=== PATIENT | male | born 1935 | race Caucasian/White ===

== ENCOUNTER → 2016-08-14 | Outpatient (CLI) | payer OTHER, MEDICARE ==
[~2016-08-14] MED LIST: ACET-1311 PO; ACET650S10 RE; AFRIN; AMIO200T PO; AMIO200T4 PO; ARC10 PO; ASCO500T16 PO; ASPEC81 PO; ASPI81TA28 PO; ATOR-24 PO; ATOR-26 PO; BCTROWC TOP; BISA10SU3 PR; CALC-574 PO; CMD5 PO; CYAN10005 PO; CZR25 PO; DRGTP12 TD; ESCI10TA17 PO; FINA5TAB PO; FLM4 PO; FLV1 PO; FOLI1TAB7 PO; GUAI1TAB75 PO; HYDR-5688 PO; INSU100I SQ; IPRASOL4 INH; LEVO1TAB35 PO; LOSA50TA54 PO; MAGN250T3 PO; MELA1TAB5 PO; METH15TA2 PO; METH2.5T PO; MOML PO; NOVOLOG ASPART; NTRGSL/4 UT; NVLG SQ; NVLGIPEN SC; NYSP EXT; NYST80OI TOP; OMEP40CA PO; OMEP40CA41 PO; OXYB10TA PO; OXYBUTYNIN; POLY150C4 PO; TOLT1CAP3 PO; TPRSR/50 PO; TYL325X PO; WARF2.5T8 PO; WARF3TAB PO; [UNRECOGNIZED DRUG - CODE] PO; augmentin; fleet enema
[2016-08-14 10:31] LABS: BASO % 0.5 %; BASO ABS # 0.03 K/uL (0-0.2); EOS % 0.6 %; IG% 0.2 %; LYMPH % 10.7 %; LYMPH ABS # 0.68 K/uL (1.2-3.4); MEAN CELL VOLUME 86.8 fL (80-100); MEAN CORPUSCULAR HEMOGLOBIN 26.7 pg (25-34); MEAN CORPUSCULAR HGB CONC 30.8 g/dl (32-36); MEAN PLATELET VOLUME 8.4 fL (7.4-10.4); PLATELET COUNT 285 K/uL (130-400); RED BLOOD COUNT 2.88 M/uL (4.7-6.1); WHITE BLOOD COUNT 6.36 K/uL (4.8-10.8)
[2016-08-14 10:39] LABS: BLOOD UREA NITROGEN 19 mg/dl (7-18); BUN/CREATININE RATIO 31.8 (10-20); CARBON DIOXIDE 31 mmol/L (21-32); CHLORIDE 108 mmol/L (98-107); CREATININE 0.59 mg/dl (0.60-1.40); GLUCOSE 82 mg/dl (70-99); POTASSIUM 4.1 mmol/L (3.5-5.1); SODIUM 144 mmol/L (136-145)
[2016-08-14 10:55] LABS: ANISOCYTOSIS PRESENT; COMPLETE YES; OVALOCYTES 1+; POIKILOCYTOSIS PRESENT
[2016-08-14 12:35] LABS: ESTIMATED AVERAGE GLUCOSE 114 mg/dl; HA1C FLAG Normal (Normal)
--- NOTE | 2016-08-15 14:11 | CODING QUERY NO DIAGNOSIS ---
TREATMENT RENDERED WITHOUT A DIAGNOSIS 37 To promote full compliance with coding requirements relating to patient care, physician participation is requested in all cases of tow feeder uncertainty. Please assist us with providing a diagnosis/symptom for the test(s) below: A diagnosis/symptom was not documented on your Order. A valid diagnosis/symptom is required to bill all insurances. Please remember that we are unable to code a diagnosis of rule out, probable, possible, questionable, or suspected. DOS 08/14/16 Tests that require a diagnosis: * CBC w/DIFF DIAGNOSIS: * BMP DIAGNOSIS: * VITAMIN D, 25-HYDROXY DIAGNOSIS: *ON YOUR ORDER YOU HAVE DX CODE I25.1, THAT IS AN INVALID CODE, CAN YOU PLEASE ADD CORRECT CODE Provider Signature: Date: Thank you Cornelia Somers [employer] Once completed, please kindly fax back to [phone] For questions please call [phone]
--- NOTE | 2016-09-24 08:18 | CODING QUERY MEDICAL NECESSITY ---
SUPPORTING DIAGNOSIS NEEDED A supporting diagnosis is required for the test/procedure performed on this patient in order for us to be reimbursed by the patient's insurance. Please provide a supporting diagnosis for the following test/procedure listed below next to the test name along with your signature. *If there is no additional diagnosis for this patient that would support the following test/procedure please document that below next to the test/procedure. Test(s)/Procedure(s) that require a supporting diagnosis: * GLYCATED HEMOGLOBIN DIAGNOSIS: * DOS: 08/14/16 Provider Signature: Date: Thank you Jackie Jimenez Health Information Management Once completed, please kindly fax back to [phone] For questions please call [phone]
== END ==
LOC: C.LABUPNIT 09:40
PROVIDERS: ATTEND Family Medicine
DX: G93.41 Metabolic encephalopathy (principal); E55.9 Vitamin D deficiency, unspecified; D63.1 Anemia in chronic kidney disease; E11.42 Type 2 diabetes mellitus with diabetic polyneuropathy

== ENCOUNTER → 2016-08-15 | Outpatient (CLI) | payer OTHER, MEDICARE ==
[2016-08-15 09:14] LABS: BASO % 0.8 %; BASO ABS # 0.05 K/uL (0-0.2); EOS % 1.4 %; HEMATOCRIT 28.6 % (42-52); IG% 0.2 %; LYMPH % 13.7 %; LYMPH ABS # 0.89 K/uL (1.2-3.4); MEAN CELL VOLUME 86.9 fL (80-100); MEAN CORPUSCULAR HEMOGLOBIN 26.4 pg (25-34); MEAN CORPUSCULAR HGB CONC 30.4 g/dl (32-36); MEAN PLATELET VOLUME 8.6 fL (7.4-10.4); NEUT % 75.9 %; PLATELET COUNT 323 K/uL (130-400); RED BLOOD COUNT 3.29 M/uL (4.7-6.1); WHITE BLOOD COUNT 6.48 K/uL (4.8-10.8)
[2016-08-15 09:25] LABS: FERRITIN 153.8 ng/ml (8.0-388.0)
[2016-08-15 09:56] LABS: ANISOCYTOSIS PRESENT; COMPLETE YES; POIKILOCYTOSIS PRESENT
== END ==
LOC: C.LABUPNIT 08:57
PROVIDERS: ATTEND Family Medicine
DX: I25.10 Atherosclerotic heart disease of native coronary artery without angina pectoris (principal)

== ENCOUNTER 2016-09-02 00:19 | Emergency (ER) | payer OTHER, MEDICARE ==
[~2016-09-02] VITALS: Ht 182.9 cm; Wt 86.0 kg
[~2016-09-02 00:19] MED LIST changes: -ACET650S10 RE; -AFRIN; -AMIO200T4 PO; -ASCO500T16 PO; -ASPEC81 PO; -ATOR-24 PO; -BCTROWC TOP; -CALC-574 PO; -CMD5 PO; -CZR25 PO; -DRGTP12 TD; -FLV1 PO; -INSU100I SQ; -METH15TA2 PO; -NVLG SQ; -NVLGIPEN SC; -NYSP EXT; -NYST80OI TOP; -OMEP40CA41 PO; -OXYB10TA PO; -TOLT1CAP3 PO; -TYL325X PO; -WARF2.5T8 PO
[2016-09-02 00:32] VITALS: Ht 182.9 cm; Wt 86.0 kg
[2016-09-02] MEDS ORDERED: AMIO200T4 PO (00:44)
[2016-09-02] MEDS ORDERED: ATOR-24 PO (00:44)
--- NOTE | 2016-09-02 00:44 | EMERGENCY ROOM VISIT NOTE ---
History Report prepared by Harsh: Carly Elena Under the Supervision of: Dr. Segundo Thomas M.D. First contact with patient: 00:25 Chief Complaint: ILLNESS Stated Complaint: FEVER/SHORT OF BREATH/ALTERED MENTAL STATUS History of Present Illness The patient is a 80 year old male who presents to the Emergency Room with complaints of a constant fever beginning today of 101.7. Per nursing staff the patient is being treated for a UTI and pneumonia. They report that the patient came from [facility] with a fever, shortness of breath, altered mental status, and shaking. They state that the patient coughed up blood yesterday and note that he is on Methotrexate and Coumadin. HPI limited secondary to AMS. Source of History: nursing staff History Limited By: AMS Onset: tonight Position: other (global) Symptom Intensity: 101.7 Timing: constant Associated Symptoms: + SOB Note: Pt came from [facility] with a altered mental status and shaking. Review of Systems See HPI for pertinent positives & negatives. A total of 10 systems reviewed and were otherwise negative. Past Medical & Surgical Medical Problems: (1) Altered mental status (2) Benign hypertension (3) Coronary artery disease (4) CVA (cerebral vascular accident) (5) Diabetes mellitus type 1 (6) Ischemic cardiomyopathy (7) Rheumatoid arthritis Family History No pertinent family history Social History Smoking Status: Unknown if Ever Smoked Drug Use: none Marital Status: Housing Status: shelter Occupation Status: retired Current/Historical Medications Scheduled Amiodarone Hcl (Cordarone), 200 MG PO DAILY Aspirin (Aspirin Ec), 81 MG PO DAILY Atorvastatin (Lipitor), 40 MG PO DAILY Cyanocobalamin (Vitamin B-12), 1,000 MCG PO DAILY Donepezil HCl (Donepezil HCl), 10 MG PO DAILY Escitalopram (Lexapro), 10 MG PO DAILY Finasteride (Proscar), 5 MG PO DAILY Folic Acid (Folvite), 1 MG PO DAILY Guaifenesin La (Guaifenesin Er), 600 MG PO Q12H Insulin Aspart (Novolog), UNITS SQ ACHS Losartan Potassium (Cozaar), 50 MG PO DAILY Magnesium (Magnesium 250 mg), 250 MG PO DAILY Methotrexate (Trexall), 15 MG PO FRIDAYS Metoprolol Succinate (Metoprolol Succinate ER), 50 MG PO DAILY Omeprazole (Prilosec), 40 MG PO DAILY Oxybutynin Chloride Er (Ditropan Xl), 10 MG PO DAILY Polysaccharide Iron Complex (Ferrex 150), 150 MG PO BID Tamsulosin HCl (Tamsulosin HCl), 0.4 MG PO DAILY Warfarin Sodium (Coumadin), 3 MG PO DAILY Scheduled PRN Acetaminophen (Tylenol), 650 MG PO Q6 PRN for Pain or Fever Acetaminophen (Tylenol), 650 MG RE Q4 PRN for TEMP >101 Hydrocodone/Acetaminophen 5MG/325MG (Centrah[place] 5MG/325MG), 1 TABLET PO Q8 PRN for Pain Ipratropium-Albuterol (Duoneb), 1 TREATMENT INH Q4H PRN for SOB/Wheezing Nitroglycerin (Nitrostat), 0.4 MG UT UD PRN for Chest Pain Allergies Coded Allergies: No Known Allergies (Verified , 09/02/16) Physical Exam Vital Signs Date Time Temp Pulse Resp B/P Pulse Ox O2 Delivery O2 Flow Rate FiO2 09/02/16 02:10 95 Nasal Cannula 4.0 09/02/16 02:10 37.5 63 14 109/52 95 Nasal Cannula 4.0 09/02/16 00:55 94 Mask 4.0 09/02/16 00:32 37.6 72 100 Mask 5.0 09/02/16 00:29 81 Physical Exam GENERAL: Acute on chronic illness, demented, moaning periodically but appears in no distress. HEENT: No acute trauma, normocephalic atraumatic, mucous membranes moist, no nasal congestion, no scleral icterus. NECK: No stridor, no adenopathy, no meningismus, trachea is midline. LUNGS: No dyspnea. No wheeze, no rhonchi. Diffuse crackles in all lung ashley. HEART: Regular rate and rhythm. No murmurs, rubs, gallops appreciated. ABDOMEN: Soft, nontender, bowel sounds positive, no masses appreciated, no peritonitis. BACK: No midline tenderness, no CVA tenderness EXTREMITIES: Normal motion all extremities, no cyanosis, no edema. NEUROLOGIC: Demented, no acute motor or sensory deficits, no focal weakness, cranial nerves grossly intact. Periodically moves arms and legs. SKIN: No rash, no jaundice, no diaphoresis. Medical Decision & Procedures ER Provider Diagnostic Interpretation: X ray results are stated below per my interpretation: Chest: 1 view: No infiltrate, no effusion, normal cardiac border. Medications Administered Medications (Trade) Dose Ordered Sig/Antwan Route Start Time Stop Time Status Last Admin Dose Admin Ceftriaxone Sodium (Rocephin Inj) 1 gm NOW STAT IV 09/02/16 01:21 09/02/16 01:22 DC 09/02/16 01:21 1 GM ED Course 0025: The patient was evaluated in room A2. A complete history and physical exam was performed. 0038: I spoke to Dr. Campbell and he recommended doing no labs and he will come evaluate the patient. 0108: Waiting for Dr. Campbell to get back to us about the patient. 0120: I spoke to Dr. Campbell and he advised giving the patient 1gm of Rocephin and discharge to [facility] with IV in place. 0121: Rocephin Inj 1gm IV. 0125: Reevaluated the patient. Discussed results and discharge instructions: He verbalized understanding and agreement. The patient is ready for discharge. Medical Decision Differential: Viral, Pharyngitis, Cellulitis, Pneumonia, Influenza, Meningitis, Sepsis, Bacteremia, UTI/Pyelonephritis, Endocrine, Toxicologic, amongst other pathologies entertained. 80 yr old male brought in from local shelter for evaluation of hypoxia, fever, and worsening mental status. Limited ROS. Review of chart clearly states DNR with comfort measures. Discussed with hospitalist who is in charge of shelter who discussed with plan. Given likely RLL infiltrate will give single dose rocephin here and they will continue abx at shelter with plan to do no further testing beyond the CXR here in ED. Consults Time Called: 0112 Consulting Physician: Dr. Campbell Returned Call: [address] Campbell and he advised giving the patient 1gm of Rocephin and discharge to [facility] with IV in place. Impression Primary Impression: Right lower lobe pneumonia Scribe Attestation The scribe's documentation has been prepared under my direction and personally reviewed by me in its entirety. I confirm that the note above accurately reflects all work, treatment, procedures, and medical decision making performed by me. Departure Information Dispostion Home / Self-Care Referrals Jose Corcoran (PCP) Patient Instructions My [facility] Additional Instructions Chest xray shows developing pneumonia. Patient Evaluated in ER by Dr Campbell who discussed case with patient's with. Plan to do IV antibiotics with comfort measures. Patient given 1 G IV Rocephin prior to transfer back to [facility]. Problem Qualifiers Primary Impression: Right lower lobe pneumonia Pneumonia type: due to unspecified organism Qualified Codes: J18.1 - Lobar pneumonia, unspecified organism
[2016-09-02] MEDS ORDERED: OMEP40CA41 PO (00:47)
[2016-09-02] MEDS ORDERED: METH15TA2 PO (00:52)
[2016-09-02] MEDS ORDERED: OXYB10TA PO (00:54)
[2016-09-02] MEDS ORDERED: ACET650S10 RE (00:56)
[2016-09-02] MEDS ORDERED: NVLG SQ (01:00)
[2016-09-02] MEDS ORDERED: CEFTRIAXONE SOD INJ 1 GM ADDVIAL IV STA (01:21)
[2016-09-02 02:10] VITALS: BP 109/52; PULSE 63; TEMP 37.5; O2SAT 95
--- NOTE | 2016-09-02 07:29 | DIAGNOSTIC IMAGING REPORT ---
SINGLE VIEW CHEST CLINICAL HISTORY: Dyspnea. FINDINGS: An AP, portable, upright chest radiograph is compared to study dated 06/10/2016. The examination is significantly degraded by portable technique and patient rotation. The patient is status post midline sternotomy. The heart is enlarged and there is atherosclerotic calcification of the thoracic aorta. There is pulmonary vascular congestion with evidence of minimal interstitial edema. Trace pleural effusions are suspected. Bibasilar atelectasis is noted. No pneumothorax is seen. The skeletal structures are osteopenic. Arthritic change is present in the shoulders and thoracic spine. IMPRESSION: Cardiomegaly with evidence of congestive failure and mild interstitial edema. Electronically signed by: Jm Nieto M.D. 09/02/2016 7:28 AM Dictated Date/Time: 09/02/2016 7:27 AM
[2016-11-14] MEDS ORDERED: AFRIN (10:22)
== END 2016-09-02 02:39 | disposition home or self-care (01) ==
LOC: EDBD 00:19 → C.EDA 00:23
DX: J18.9 Pneumonia, unspecified organism (principal); I10 Essential (primary) hypertension; I25.10 Atherosclerotic heart disease of native coronary artery without angina pectoris; E10.9 Type 1 diabetes mellitus without complications; I25.5 Ischemic cardiomyopathy; M06.9 Rheumatoid arthritis, unspecified; Z86.73 Personal history of transient ischemic attack (TIA), and cerebral infarction without residual deficits; Z79.82 Long term (current) use of aspirin; Z79.01 Long term (current) use of anticoagulants; Z79.4 Long term (current) use of insulin; Z79.899 Other long term (current) drug therapy

== ENCOUNTER → 2016-10-17 | Outpatient (CLI) | payer OTHER, MEDICARE ==
[~2016-10-17] MED LIST changes: +ACET650S10 RE; +AFRIN; -AMIO200T PO; +AMIO200T4 PO; +ASCO500T16 PO; +ATOR-24 PO; -ATOR-26 PO; +BCTROWC TOP; -BISA10SU3 PR; +DRGTP12 TD; +INSU100I SQ; -LEVO1TAB35 PO; -MELA1TAB5 PO; +METH15TA2 PO; -METH2.5T PO; -MOML PO; -NOVOLOG ASPART; +NVLG SQ; +NYST80OI TOP; -OMEP40CA PO; +OMEP40CA41 PO; +OXYB10TA PO; -OXYBUTYNIN; +WARF2.5T8 PO; -[UNRECOGNIZED DRUG - CODE] PO; -augmentin; -fleet enema
[2016-10-17 08:33] LABS: INR 1.8 (0.9-1.1); PROTHROMBIN TIME (PATIENT) 20.3 SECONDS (9.0-12.0)
[2016-10-17 09:10] LABS: URINE APPEARANCE CLEAR (CLEAR); URINE BILIRUBIN NEG (NEG); URINE COLOR YELLOW; URINE EPITHELIAL CELL AUTO 20-30 /lpf (0-5); URINE NITRITE NEG (NEG); URINE PH 8.5 (4.5-7.5); URINE SPECIFIC GRAVITY 1.008 (1.000-1.030); UROBILINOGEN NEG (NEG)
[2016-10-17 09:24] LABS: MANUAL MICROSCOPIC REQUIRED? NO; REVIEW REQ? NO
== END ==
LOC: C.LABUPNIT 08:05 → EDSTATUS 10-29 10:37
PROVIDERS: ATTEND Family Medicine
DX: I48.2 Chronic atrial fibrillation (principal); N39.0 Urinary tract infection, site not specified

== ENCOUNTER → 2016-10-19 | Outpatient (CLI) | payer OTHER, MEDICARE ==
[2016-10-19 09:02] LABS: PROTHROMBIN TIME (PATIENT) 21.9 SECONDS (9.0-12.0)
== END ==
LOC: EDSTATUS 10:36 → C.LABUPNIT 10:43
PROVIDERS: ATTEND Family Medicine
DX: I48.92 Unspecified atrial flutter (principal)

== ENCOUNTER → 2016-11-07 | Outpatient (CLI) | payer OTHER, MEDICARE ==
--- NOTE | 2016-11-07 17:02 | DIAGNOSTIC IMAGING REPORT ---
CT SCAN OF THE ABDOMEN AND PELVIS WITHOUT CONTRAST CLINICAL HISTORY: Right renal mass COMPARISON STUDY: 09/12/2015 TECHNIQUE: CT scan of the abdomen and pelvis was performed from the lung bases to the proximal femurs. Images are reviewed in the axial, sagittal, and coronal planes. IV contrast was not administered for this examination. CT DOSE: 933.28 mGy.cm FINDINGS: Lower chest: The heart is enlarged. There are bilateral pleural effusions. There are bibasal airspace opacities, likely atelectatic although an inflammatory process could appear similar. Liver: There is an 11 mm hypodensity within the left lobe of the liver. This likely represents a cyst. Gallbladder: Unremarkable. Spleen: Normal in size and attenuation. Pancreas: There is a stable 13 mm cystic lesion arising from the mid body of the pancreas. Adrenal glands: There is left adrenal gland thickening, likely representing adrenal gland hypertrophy/an adenoma. Kidneys: There is an 11 mm mid pole right renal calculus. There are 3 lower pole right renal calculi the largest of which measures 2.5 mm. There is an 11 mm calculus at the level of the right ureteropelvic junction. There is a stable 2 cm left renal mass which exceeds water attenuation. This is therefore indeterminate. There is a 12 mm upper pole left renal mass which also exceeds water attenuation and is indeterminate. There is a 14 mm right renal cyst. There is a suspected 8 mm hyperdense right renal cyst. Bowel: There are no transition zones indicate bowel obstruction. There is a left inguinal hernia which contains a sigmoid bowel loop. This is not currently resulting in bowel obstruction. There is a tiny fat-containing ventral hernia. Peritoneum: There is no intraperitoneal free air or abdominal ascites. Vasculature: The abdominal aorta is normal in course and caliber. Adenopathy: None. Pelvic viscera: There is mild prostamegaly. There is bladder wall thickening. Skeletal structures: There are advanced multilevel degenerative changes with suspected multilevel spinal stenosis. There are postsurgical changes of a right hip arthroplasty. There are multiple old rib fractures. IMPRESSION: 1. No evidence of bowel obstruction. No evidence of free air 2. Right-sided nephrolithiasis, including an 11 mm calculus at the level the right ureterovesical junction 3. Bilateral renal masses which remain stable. Several these exceed water attenuation and are therefore indeterminate 4. Left femoral hernia containing a loop of sigmoid. There is no current evidence of obstruction 5. Mild prostamegaly. Bladder wall thickening 6. 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 Advanced degenerative changes within the spine with multilevel spinal stenosis 3. Cardiomegaly and bilateral pleural effusions Electronically signed by: Mario Quesada M.D. 11/07/2016 5:00 PM Dictated Date/Time: 11/07/2016 4:50 PM
== END ==
LOC: C.CTS 16:37
PROVIDERS: ATTEND Urology
DX: N28.89 Other specified disorders of kidney and ureter (principal); N20.0 Calculus of kidney; N40.0 Benign prostatic hyperplasia without lower urinary tract symptoms; K86.9 Disease of pancreas, unspecified; M48.00 Spinal stenosis, site unspecified; I51.7 Cardiomegaly; J90 Pleural effusion, not elsewhere classified

== ENCOUNTER 2016-11-12 16:43 | Inpatient (IN) | payer OTHER, MEDICARE ==
[~2016-11-12] VITALS: Ht 182.9 cm; Wt 72.0 kg
[~2016-11-12 16:43] MED LIST changes: -AFRIN; -ASCO500T16 PO; -BCTROWC TOP; -DRGTP12 TD; -INSU100I SQ; -NYST80OI TOP; -WARF2.5T8 PO
[2016-11-12] MEDS ORDERED: ALBUT/IPRATROP 3MG/0.5MG NEB 3 ML VIAL INH STA (17:16)
[2016-11-12] MEDS ORDERED: WARF2.5T8 PO (17:27)
[2016-11-12] MEDS ORDERED: DRGTP12 TD (17:31)
[2016-11-12] MEDS ORDERED: ASCO500T16 PO (17:35)
[2016-11-12] MEDS ORDERED: INSU100I SQ (17:39)
--- NOTE | 2016-11-12 17:41 | DIAGNOSTIC IMAGING REPORT ---
CHEST ONE VIEW PORTABLE HISTORY: EVALUATE WEAKNESS COMPARISON: Chest 09/02/2016. Abdomen and pelvis CT 11/07/2016 FINDINGS: No pneumothorax. The heart remains enlarged. Poststernotomy changes. Mild interstitial pulmonary edema. Hazy appearance to the lung bases consistent with small bilateral pleural effusions and bibasilar opacities. This remains unchanged. IMPRESSION: 1. Mild interstitial pulmonary edema. 2. Hazy appearance the lung bases is consistent with small bilateral pleural effusions and bibasilar densities. Electronically signed by: Eber Lemon M.D. 11/12/2016 5:39 PM Dictated Date/Time: 11/12/2016 5:38 PM
[2016-11-12 17:42] LABS: BASO % 0.2 %; BASO ABS # 0.01 K/uL (0-0.2); EOS % 0.8 %; HEMATOCRIT 26.5 % (42-52); IG% 0.3 %; LYMPH % 8.9 %; LYMPH ABS # 0.54 K/uL (1.2-3.4); MEAN CELL VOLUME 82.3 fL (80-100); MEAN CORPUSCULAR HEMOGLOBIN 24.5 pg (25-34); MEAN CORPUSCULAR HGB CONC 29.8 g/dl (32-36); MEAN PLATELET VOLUME 8.1 fL (7.4-10.4); MONO % 6.6 %; NEUT % 83.2 %; PLATELET COUNT 258 K/uL (130-400); RED BLOOD COUNT 3.22 M/uL (4.7-6.1); WHITE BLOOD COUNT 6.04 K/uL (4.8-10.8)
[2016-11-12] MEDS ORDERED: BCTROWC TOP (17:43)
[2016-11-12] MEDS ORDERED: NYST80OI TOP (17:43)
[2016-11-12 17:53] LABS: INR 2.8 (0.9-1.1); PARTIAL THROMBOPLASTIN RATIO 1.7; PROTHROMBIN TIME (PATIENT) 30.7 SECONDS (9.0-12.0)
[2016-11-12 18:04] LABS: BLOOD UREA NITROGEN 19 mg/dl (7-18); BUN/CREATININE RATIO 38.4 (10-20); CARBON DIOXIDE 35 mmol/L (21-32); CHLORIDE 107 mmol/L (98-107); CREATININE 0.49 mg/dl (0.60-1.40); GLUCOSE 85 mg/dl (70-99); POTASSIUM 3.7 mmol/L (3.5-5.1); SODIUM 145 mmol/L (136-145)
[2016-11-12 18:06] LABS: ANISOCYTOSIS PRESENT; COMPLETE YES; HYPOCHROMIA PRESENT
[2016-11-12 18:16] LABS: ALKALINE PHOSPHATASE 132 U/L (45-117); ALT/SGPT 40 U/L (12-78); AST/SGOT 19 U/L (15-37); CKMB/CK RATIO 3.1 (0-3.0); THYROID STIMULATING HORMONE 0.482 uIu/ml (0.300-4.500)
[2016-11-12] MEDS ORDERED: DOXYCYCLINE IV 100 MG in DEXTROSE 5% 100ML 100 ML IV STA (18:41)
[2016-11-12] MEDS ORDERED: ONDANSETRON INJ 2 MG/ML 2 ML VIAL IV PRN (19:15)
[2016-11-12] MEDS ORDERED: ALUMINUM/MAGNESIUM/SIMETH (MAALOX MAX) 30 ML UDC PO PRN (19:15)
[2016-11-12] MEDS ORDERED: MAGNESIUM HYDROXIDE SUSP 30 ML UDC PO PRN (19:15)
[2016-11-12] MEDS ORDERED: ACETAMINOPHEN 325 MG TAB PO PRN (19:15)
[2016-11-12] MEDS ORDERED: POLYETHYLENE (MIRALAX) 17 GM PACK PO PRN (19:15)
--- NOTE | 2016-11-12 19:37 | History and Physical ---
History & Physical Date & Time of Service: Nov 12, 2016 at 19:12 Chief Complaint: Hypoxia Primary Care Physician: Jose Corcoran History of Present Illness Source: patient, family Patient is a 80 y.o.M PMHx of dementia, atrial flutter, decubitus ulcer, Diabetes who presents with epistaxis. Pt resides at [facility]. Today patient developed profuse nose bleeds. Patients oxygen was removed and he subsequently developed hypoxia. Patient also c/o SOB and was transferred to [facility]. On presentation patient states he feels much better. He is currently on in baseline 4 L O2. Patient denies any fevers, chest pain, current SOB, nausea or vomiting. Past Medical/Surgical History Medical Problems: (1) Benign hypertension Status: Chronic (2) Coronary artery disease Status: Chronic (3) Diabetes mellitus type 1 Status: Chronic (4) Ischemic cardiomyopathy Status: Chronic (5) Rheumatoid arthritis Status: Chronic Family History No pertinent family history Social History Smoking Status: Never Smoker Drug Use: none Marital Status: Housing status: lives with significant other Occupational Status: retired Immunizations History of Influenza Vaccine: No History of Tetanus Vaccine?: No History of Pneumococcal: Unknown History of Hepatitis B Vaccine: Yes Multi-Drug Resistant Organisms History of MDRO: No Allergies Coded Allergies: No Known Allergies (Verified , 11/12/16) Home Medications Scheduled Amiodarone Hcl (Cordarone), 200 MG PO DAILY Ascorbic Acid (Ascorbic Acid), 500 MG PO DAILY Aspirin (Aspirin Ec), 81 MG PO DAILY Atorvastatin (Lipitor), 40 MG PO QPM Cyanocobalamin (Vitamin B-12), 1,000 MCG PO DAILY Donepezil HCl (Donepezil HCl), 10 MG PO DAILY Escitalopram (Lexapro), 10 MG PO DAILY Finasteride (Proscar), 5 MG PO DAILY Folic Acid (Folvite), 1 MG PO 6XWK Guaifenesin La (Guaifenesin Er), 600 MG PO Q12H Insulin Lispro (Human) (Humalog), 1 DOSE SQ ACHS Losartan Potassium (Cozaar), 50 MG PO DAILY Magnesium (Magnesium 250 mg), 250 MG PO DAILY Methotrexate (Trexall), 15 MG PO FRIDAYS Metoprolol Succinate (Metoprolol Succinate ER), 50 MG PO DAILY Mupirocin (Bactroban 2% Oint), 1 APPLN TOP DAILY Nystatin (Topical) (Nystatin), 1 APPLN TOP TID Omeprazole (Prilosec), 40 MG PO DAILY Oxybutynin Chloride Er (Ditropan Xl), 10 MG PO DAILY Polysaccharide Iron Complex (Ferrex 150), 150 MG PO BID Tamsulosin HCl (Tamsulosin HCl), 0.4 MG PO DAILY Warfarin Sod (Jantoven), 2.5 MG PO QPM Scheduled PRN Fentanyl (Fentanyl), 12 MCG TD [id number] PRN for Pain Hydrocodone/Acetaminophen 5MG/325MG ([place] 5MG/325MG), 1 TABLET PO Q8 PRN for Pain Nitroglycerin (Nitrostat), 0.4 MG UT UD PRN for Chest Pain Review of Systems Constitutional: No chills, No fever Eyes: No worsening of vision ENT: No hearing loss Respiratory: No cough, No sputum Cardiovascular: No chest pain Abdomen: No pain Musculoskeletal: No joint pain Genitourinary - Male: No hematuria Neurologic: No memory loss Psychiatric: No anxiety, No depression symptoms Endocrine: No fatigue Integumentary: No itch, No rash Physical Exam Vital Signs Date Time Temp Pulse Resp B/P Pulse Ox O2 Delivery O2 Flow Rate FiO2 11/12/16 18:30 58 18 147/61 94 Nasal Cannula 4.0 11/12/16 16:59 59 11/12/16 16:55 97 Nasal Cannula 4.0 11/12/16 16:55 36.9 62 19 155/65 97 Nasal Cannula 4.0 11/12/16 16:55 97 Nasal Cannula 4.0 11/12/16 16:55 97 Nasal Cannula General Appearance: WD/WN, no apparent distress Head: normocephalic Eyes: normal inspection ENT: normal ENT inspection Neck: supple, no adenopathy Respiratory/Chest: chest non-tender, lungs clear Cardiovascular: regular rate, rhythm, no edema Abdomen/GI: normal bowel sounds, non tender, soft Back: normal inspection Extremities/Musculoskelatal: normal inspection Neurologic/Psych: home care chaplain II-XII nml as tested, no motor/sensory deficits, alert Skin: normal color, warm/dry, no rash Lymphatic: no adenopathy Diagnostics Laboratory Results Results Past 24 Hours Test 11/12/16 17:33 Range/Units White Blood Count 6.04 4.8-10.8 K/uL Red Blood Count 3.22 4.7-6.1 M/uL Hemoglobin 7.9 14.0-18.0 g/dL Hematocrit 26.5 42-52 % Mean Corpuscular Volume 82.3 80-100 fL Mean Corpuscular Hemoglobin 24.5 25-34 pg Mean Corpuscular Hemoglobin Concent 29.8 32-36 g/dl Platelet Count 258 130-400 K/uL Mean Platelet Volume 8.1 7.4-10.4 fL Neutrophils (%) (Auto) 83.2 % Lymphocytes (%) (Auto) 8.9 % Monocytes (%) (Auto) 6.6 % Eosinophils (%) (Auto) 0.8 % Basophils (%) (Auto) 0.2 % Neutrophils # (Auto) 5.02 1.4-6.5 K/uL Lymphocytes # (Auto) 0.54 1.2-3.4 K/uL Monocytes # (Auto) 0.40 0.11-0.59 K/uL Eosinophils # (Auto) 0.05 0-0.5 K/uL Basophils # (Auto) 0.01 0-0.2 K/uL RDW Standard Deviation 58.9 36.4-46.3 fL RDW Coefficient of Variation 19.5 11.5-14.5 % Immature Granulocyte % (Auto) 0.3 % Immature Granulocyte # (Auto) 0.02 0.00-0.02 K/uL Hypochromasia PRESENT Anisocytosis PRESENT Prothrombin Time 30.7 9.0-12.0 SECONDS Prothromb Time International Ratio 2.8 0.9-1.1 Activated Partial Thromboplast Time 44.7 21.0-31.0 SECONDS Partial Thromboplastin Ratio 1.7 Sodium Level 145 136-145 mmol/L Potassium Level 3.7 3.5-5.1 mmol/L Chloride Level 107 98-107 mmol/L Carbon Dioxide Level 35 21-32 mmol/L Anion Gap 3.0 3-11 mmol/L Blood Urea Nitrogen 19 7-18 mg/dl Creatinine 0.49 0.60-1.40 mg/dl Estimated GFR () 121.3 Estimated GFR (Non- 104.7 BUN/Creatinine Ratio 38.4 10-20 Random Glucose 85 70-99 mg/dl Calcium Level 8.1 8.5-10.1 mg/dl Magnesium Level 2.0 1.8-2.4 mg/dl Total Bilirubin 0.6 0.2-1 mg/dl Direct Bilirubin 0.2 0-0.2 mg/dl Aspartate Amino Transf (AST/SGOT) 19 15-37 U/L Alanine Aminotransferase (ALT/SGPT) 40 12-78 U/L Alkaline Phosphatase 132 45-117 U/L Total Creatine Kinase 16 39-308 U/L Creatine Kinase MB 0.5 0.5-3.6 ng/ml Creatine Kinase MB Ratio 3.1 0-3.0 Troponin I 0.040 0-0.045 ng/ml Total Protein 6.3 6.4-8.2 gm/dl Albumin 2.2 3.4-5.0 gm/dl Thyroid Stimulating Hormone (TSH) 0.482 0.300-4.500 uIu/ml Microbiology Results 11/12/16 Blood Culture, Received Pending 11/12/16 Blood Culture, Peter Batch Pending Diagnostic Radiology CXR 1. Mild interstitial pulmonary edema. 2. Hazy appearance the lung bases is consistent with small bilateral pleural effusions and bibasilar densities. EKG LBBB Impression Assessment and Plan Patient is a 80 y.o.M PMHx of DM, Dementia, atrial flutter who presented with epistaxis Epistaxis - admit to observation i setting of patient being on anticoagulation with coumadin - trend HGB/baseline around 8-9 - hold on IVF as I believe volume status is adequate Chronic Hypoxic Respiratory failure - currently at baseline 4L BPH - continue finasteride and flomax Atrial Fluttter - continue BB /amiodarone - continue coumadin - check PT/INR in am Renal Mass - poor surgical candidate. - to follow with urology U/S in 02/2017 CAD - cont ASA, Statin BB Sacral Decubitus ulcer - consult wound care GERD - Protonix PPX- coumadin DNR/DNI Level of Care Med/Surg Resuscitation Status DO NOT RESUSCITATE VTE Prophylaxis Risk Level: High Given or contraindicated: Warfarin (Coumadin)
[2016-11-12] MEDS ORDERED: PHARMACY GLYCEMIC MGMT CONSULT PRN (20:02)
[2016-11-12] MEDS ORDERED: [UNRECOGNIZED DRUG - OTHER] SCH (20:30)
--- NOTE | 2016-11-12 20:36 | EMERGENCY ROOM VISIT NOTE ---
History Report prepared by Harsh: Jennifer Duke Under the Supervision of: Dr. Bernard Gimenez M.D. First contact with patient: 16:50 Chief Complaint: RESPIRATORY PROBLEMS Stated Complaint: HYPOXIA History of Present Illness The patient is a 80 year old male who presents to the Emergency Room via EMS to be evaluated for improved respiratory problems that began this afternoon. Per nursing staff, the patient has been having frequent nose bleeds throughout the day today. He is on 4L oxygen at all times, but was taken of it due to his nosebleeds. The patient started to become lethargic and altered at his residence and his oxygen saturation was found to be in the 70s. He was then put on 8L oxygen with improvement in his symptoms. Currently, the patient complains of some shortness of breath. Pt denies LOC, headache, fevers, chills, diaphoresis, visual changes, neck pain, chest pain, nausea, vomiting, abdominal pain, back pain, melena, hematochezia, urinary symptoms, numbness, weakness, lymphadenopathy, rash, or other complaints. Source of History: patient, nursing staff Onset: this afternoon Position: other (respiratory) Symptom Intensity: O2 saturation in 70s Timing: other (improved) Associated Symptoms: + SOB Note: Other symptoms: Nosebleeds Review of Systems See HPI for pertinent positives and negatives. A total of ten systems were reviewed and were otherwise negative. Past Medical & Surgical Medical Problems: (1) Altered mental status (2) Benign hypertension (3) Coronary artery disease (4) CVA (cerebral vascular accident) (5) Diabetes mellitus type 1 (6) Epistaxis (7) Ischemic cardiomyopathy (8) Rheumatoid arthritis Family History No pertinent family history Social History Smoking Status: Unknown if Ever Smoked Drug Use: none Marital Status: Housing Status: half-way Occupation Status: retired Current/Historical Medications Scheduled Amiodarone Hcl (Cordarone), 200 MG PO DAILY Ascorbic Acid (Ascorbic Acid), 500 MG PO DAILY Aspirin (Aspirin Ec), 81 MG PO DAILY Atorvastatin (Lipitor), 40 MG PO QPM Cyanocobalamin (Vitamin B-12), 1,000 MCG PO DAILY Donepezil HCl (Donepezil HCl), 10 MG PO DAILY Escitalopram (Lexapro), 10 MG PO DAILY Finasteride (Proscar), 5 MG PO DAILY Folic Acid (Folvite), 1 MG PO 6XWK Guaifenesin La (Guaifenesin Er), 600 MG PO Q12H Insulin Lispro (Human) (Humalog), 1 DOSE SQ ACHS Losartan Potassium (Cozaar), 50 MG PO DAILY Magnesium (Magnesium 250 mg), 250 MG PO DAILY Methotrexate (Trexall), 15 MG PO FRIDAYS Metoprolol Succinate (Metoprolol Succinate ER), 50 MG PO DAILY Mupirocin (Bactroban 2% Oint), 1 APPLN TOP DAILY Nystatin (Topical) (Nystatin), 1 APPLN TOP TID Omeprazole (Prilosec), 40 MG PO DAILY Oxybutynin Chloride Er (Ditropan Xl), 10 MG PO DAILY Polysaccharide Iron Complex (Ferrex 150), 150 MG PO BID Tamsulosin HCl (Tamsulosin HCl), 0.4 MG PO DAILY Warfarin Sod (Jantoven), 2.5 MG PO QPM Scheduled PRN Fentanyl (Fentanyl), 12 MCG TD [id number] PRN for Pain Hydrocodone/Acetaminophen 5MG/325MG (Platter 5MG/325MG), 1 TABLET PO Q8 PRN for Pain Nitroglycerin (Nitrostat), 0.4 MG UT UD PRN for Chest Pain Allergies Coded Allergies: No Known Allergies (Verified , 11/12/16) Physical Exam Vital Signs Date Time Temp Pulse Resp B/P Pulse Ox O2 Delivery O2 Flow Rate FiO2 11/12/16 18:30 58 18 147/61 94 Nasal Cannula 4.0 11/12/16 16:59 59 11/12/16 16:55 97 Nasal Cannula 4.0 11/12/16 16:55 36.9 62 19 155/65 97 Nasal Cannula 4.0 11/12/16 16:55 97 Nasal Cannula 4.0 11/12/16 16:55 97 Nasal Cannula Physical Exam GENERAL: Awake, alert, well-appearing, in no distress HENT: Normocephalic, atraumatic. Dry blood in the oral mucosa as well as in both nares, no active bleeding at this time. EYES: Pale conjunctiva. Sclera non-icteric. NECK: Supple. No nuchal rigidity. FROM. No JVD. RESPIRATORY: Some rhonchi and wheezes to auscultation. CARDIAC: Regular rate, normal rhythm. Extremities warm and well perfused. Pulses equal. ABDOMEN: Soft, non-distended. No tenderness to palpation. No rebound or guarding. No masses. RECTAL: Deferred. MUSCULOSKELETAL: Chest examination reveals no tenderness. The back is symmetrical on inspection without obvious abnormality. There is no CVA tenderness to palpation. No joint edema. LOWER EXTREMITIES: Calves are equal size bilaterally and non-tender. No edema. No discoloration. NEURO: Normal sensorium. No sensory or motor deficits noted. SKIN: No rash or jaundice noted. Medical Decision & Procedures ER Provider Diagnostic Interpretation: Radiology results as stated below per my review and radiologist interpretation CHEST ONE VIEW PORTABLE HISTORY: EVALUATE WEAKNESS COMPARISON: Chest 09/02/2016. Abdomen and pelvis CT 11/07/2016 FINDINGS: No pneumothorax. The heart remains enlarged. Poststernotomy changes. Mild interstitial pulmonary edema. Hazy appearance to the lung bases consistent with small bilateral pleural effusions and bibasilar opacities. This remains unchanged. IMPRESSION: 1. Mild interstitial pulmonary edema. 2. Hazy appearance the lung bases is consistent with small bilateral pleural effusions and bibasilar densities. Electronically signed by: Eber Lemon M.D. 11/12/2016 5:39 PM Dictated Date/Time: 11/12/2016 5:38 PM Laboratory Results 11/12/16 17:33 Red Blood Count 3.22, Mean Corpuscular Volume 82.3, Mean Corpuscular Hemoglobin 24.5, Mean Corpuscular Hemoglobin Concent 29.8, Mean Platelet Volume 8.1, Neutrophils (%) (Auto) 83.2, Lymphocytes (%) (Auto) 8.9, Monocytes (%) (Auto) 6.6, Eosinophils (%) (Auto) 0.8, Basophils (%) (Auto) 0.2, Neutrophils # (Auto) 5.02, Lymphocytes # (Auto) 0.54, Monocytes # (Auto) 0.40, Eosinophils # (Auto) 0.05, Basophils # (Auto) 0.01 11/12/16 17:33 Test 11/12/16 17:33 White Blood Count 6.04 K/uL (4.8-10.8) Red Blood Count 3.22 M/uL (4.7-6.1) Hemoglobin 7.9 g/dL (14.0-18.0) Hematocrit 26.5 % (42-52) Mean Corpuscular Volume 82.3 fL (80-100) Mean Corpuscular Hemoglobin 24.5 pg (25-34) Mean Corpuscular Hemoglobin Concent 29.8 g/dl (32-36) Platelet Count 258 K/uL (130-400) Mean Platelet Volume 8.1 fL (7.4-10.4) Neutrophils (%) (Auto) 83.2 % Lymphocytes (%) (Auto) 8.9 % Monocytes (%) (Auto) 6.6 % Eosinophils (%) (Auto) 0.8 % Basophils (%) (Auto) 0.2 % Neutrophils # (Auto) 5.02 K/uL (1.4-6.5) Lymphocytes # (Auto) 0.54 K/uL (1.2-3.4) Monocytes # (Auto) 0.40 K/uL (0.11-0.59) Eosinophils # (Auto) 0.05 K/uL (0-0.5) Basophils # (Auto) 0.01 K/uL (0-0.2) RDW Standard Deviation 58.9 fL (36.4-46.3) RDW Coefficient of Variation 19.5 % (11.5-14.5) Immature Granulocyte % (Auto) 0.3 % Immature Granulocyte # (Auto) 0.02 K/uL (0.00-0.02) Hypochromasia PRESENT Anisocytosis PRESENT Prothrombin Time 30.7 SECONDS (9.0-12.0) Prothromb Time International Ratio 2.8 (0.9-1.1) Activated Partial Thromboplast Time 44.7 SECONDS (21.0-31.0) Partial Thromboplastin Ratio 1.7 Anion Gap 3.0 mmol/L (3-11) Estimated GFR () 121.3 Estimated GFR (Non- 104.7 BUN/Creatinine Ratio 38.4 (10-20) Calcium Level 8.1 mg/dl (8.5-10.1) Magnesium Level 2.0 mg/dl (1.8-2.4) Total Bilirubin 0.6 mg/dl (0.2-1) Direct Bilirubin 0.2 mg/dl (0-0.2) Aspartate Amino Transf (AST/SGOT) 19 U/L (15-37) Alanine Aminotransferase (ALT/SGPT) 40 U/L (12-78) Alkaline Phosphatase 132 U/L (45-117) Total Creatine Kinase 16 U/L (39-308) Creatine Kinase MB 0.5 ng/ml (0.5-3.6) Creatine Kinase MB Ratio 3.1 (0-3.0) Troponin I 0.040 ng/ml (0-0.045) Total Protein 6.3 gm/dl (6.4-8.2) Albumin 2.2 gm/dl (3.4-5.0) Thyroid Stimulating Hormone (TSH) 0.482 uIu/ml (0.300-4.500) Laboratory results reviewed by me Medications Administered Medications (Trade) Dose Ordered Sig/Antwan Route Start Time Stop Time Status Last Admin Dose Admin Albuterol/ Ipratropium 3 ml 3 ml NOW STAT INH 11/12/16 17:16 11/12/16 17:17 DC 11/12/16 17:29 3 ML Doxycycline Hyclate/Dextrose (Vibramycin IV/ D5 100ml) 110 ml @ 50 mls/hr NOW STAT IV 11/12/16 18:41 11/12/16 20:52 11/12/16 19:44 50 MLS/HR ECG Indication: SOB/dyspnea Rate (beats per minute): 57 Rhythm: sinus bradycardia Findings: LBBB (incomplete), left axis deviation, prolonged QT ED Course 165: The patient was evaluated in room B12. A complete history and physical exam was performed. 1716: Ordered DuoNeb 3 ml INH. 1726: I reassessed the patient and spoke with his . His said that he has anemia but she is unsure why. He had a blood transfusion 2 months ago. 1840: Upon reexamination, the patient was resting comfortably. I discussed the test results and treatment plan with the patient and his . I ordered 2 units of blood and obtained consent from the patient with his present. The patient will be evaluated for further management. Ordered Doxycycline Hyclate 100 mg/Dextrose 110 ml @ 50 mls/hr IV. 184: I discussed the case with Dr. William Ross [facility]. The patient will be evaluated for further management. 2000: I clarified with Dr. Campbell that he will be transfused a unit of blood. Medical Decision Triage Nursing notes reviewed. The patient's presentation and history were concerning for nosebleed, shortness of breath, and history of anemia. Etiologies such as coagulopathy, severe anemia, anterior epistaxis, posterior epistaxis, metabolic, infection, hypo/hyperglycemia, electrolyte abnormalities, cardiac sources, pneumonia, COPD, as well as others were entertained. The patient was evaluated. He was doing relatively well with cannula oxygen. There is no active hemorrhage. His septum was irritated appearing bilaterally. No posterior bleeding was noted. He did have 4 significant episodes of bleeding described. He was pale. His lung examination was course and concerning. He was given a DuoNeb. He had cultures obtained. He was typed and crossed. His hemoglobin was concerning at 7.9. The patient and family were informed. Given the fact that he is symptomatic and has had 4 episodes of bleeding I discussed transfusion. He was typed and crossed for 2 units. The patient was also found to have a pneumonia on chest x-ray. He was given IV doxycycline to minimize the interactions with his multiple medications. The patient had an unremarkable chemistry panel and cardiac markers. A consultation was placed with Dr. Thomas who evaluated the patient. She initially held the transfusion. The nurse asked me for clarification. I did page the hospitalist again. Dr. Walter Campbell and returned the page. He does know the patient from prior interactions. He felt a blood transfusion was reasonable and did order 1 unit to be given and will recheck the patient to see if additional transfusion is necessary. The chart was completed utilizing [employer] Speech voice recognition software. Grammatical errors, random word insertions, pronoun errors, and incomplete sentences are an occasional consequence of this system due to software limitations, ambient noise, and hardware issues. Any formal questions or concerns about the content, text, or information contained within the body of this dictation should be directly addressed to the physician for clarification. Consults Time Called: 1844 Consulting Physician: Dr. Thomas - [facility] [place] Hospital[place] Returned Call: 1845 I discussed the case with her. The patient will be evaluated for further management. Impression Primary Impression: Epistaxis Additional Impressions: Symptomatic anemia Pneumonia Scribe Attestation The scribe's documentation has been prepared under my direction and personally reviewed by me in its entirety. I confirm that the note above accurately reflects all work, treatment, procedures, and medical decision making performed by me. Departure Information Dispostion Being Evaluated By Hospitalist Referrals Jose Corcoran (PCP) Patient Instructions [facility] Health Problem Qualifiers
[2016-11-12] MEDS ORDERED: IV FLUIDS COMPLETED PRN (20:45)
[2016-11-12] MEDS: INSULIN ASPART 100 UNITS/ML 3 ML PEN SC SCH (21:00)
[2016-11-12] MEDS: NYSTATIN OINT 15 GM TUBE EXT SCH (21:00)
[2016-11-12 21:08] VITALS: BP 158/71; PULSE 60; TEMP 36.9; O2SAT 94
--- NOTE | 2016-11-12 21:13 | Pharmacy Progress Note ---
Glycemic: Assessment & Plan Date of Service Nov 12, 2016. Assessment & Plan Item Value Date Time Bedside Glucose 117 mg/dl H 11/12/16 2100 Random Glucose 85 mg/dl 11/12/16 1733 HOME DIABETES REGIMEN: * metformin 500mg po BID * Humalog SSI * A1c from 08/14/16 = 5.6% PLAN: Will only ordered Novolog Correction Factor at this time. WIll f/u in am to determine if changes to insulin regimen are warranted. * Basal insulin: Not at this time * Correctional Insulin: Novolog Correction per scale ACHS Goal Range: Low 120 mg/dL - High 160 mg/dL Correction Factor: 35 mg/dL/unit * Prandial insulin: Not at this time Pharmacy will continue to monitor patient daily and write orders per [facility] inpatient glycemic control protocol. Thanks. * Please note that the plan above was derived based on current level of insulin resistance and hospital stress. These recommendations are appropriate for inpatient admission only. Plan of care upon discharge will need to be reassessed to avoid potential outpatient hypo/hyperglycemia.
[2016-11-12] MEDS: WARFARIN SOD 2.5 MG TAB PO SCH (22:15)
[2016-11-12] MEDS: ATORVASTATIN 40 MG TAB PO SCH (22:15)
[2016-11-12 22:33] VITALS: BP 158/71; PULSE 58; TEMP 36.9; O2SAT 93
[2016-11-12 22:49] VITALS: BP 141/69; PULSE 58; TEMP 36.9; O2SAT 98
[2016-11-12 22:50] VITALS: Ht 182.9 cm; Wt 72.0 kg
[2016-11-12 23:05] VITALS: BP 170/69; PULSE 56; TEMP 37.2; O2SAT 99
[2016-11-12 23:34] VITALS: BP 161/70; PULSE 58; TEMP 37; O2SAT 97
[2016-11-13 00:05] VITALS: BP 152/72; PULSE 62; TEMP 36.8; O2SAT 99
[2016-11-13 01:04] VITALS: BP 156/69; PULSE 57; TEMP 36.8; O2SAT 94
[2016-11-13 07:14] LABS: HEMATOCRIT 26.7 % (42-52); MEAN CELL VOLUME 82.7 fL (80-100); MEAN CORPUSCULAR HEMOGLOBIN 25.7 pg (25-34); MEAN CORPUSCULAR HGB CONC 31.1 g/dl (32-36); MEAN PLATELET VOLUME 8.2 fL (7.4-10.4); PLATELET COUNT 234 K/uL (130-400); RED BLOOD COUNT 3.23 M/uL (4.7-6.1); WHITE BLOOD COUNT 5.46 K/uL (4.8-10.8)
[2016-11-13 07:21] LABS: PROTHROMBIN TIME (PATIENT) 33.8 SECONDS (9.0-12.0)
[2016-11-13] MEDS: CHECK FENTANYL PATCH PLACEMENT SCH ×3 (07:48→23:41)
[2016-11-13] MEDS: INSULIN ASPART 100 UNITS/ML 3 ML PEN SC SCH ×4 (08:00→21:33)
[2016-11-13 08:06] VITALS: BP 174/71; PULSE 53; TEMP 36.5; O2SAT 95
[2016-11-13] MEDS ORDERED: FENTANYL PATCH REMOVE & WASTE SCH (08:59)
[2016-11-13] MEDS ORDERED: FENTANYL 12 MCG/HR TDSY TD SCH (09:00)
[2016-11-13] MEDS: NYSTATIN OINT 15 GM TUBE EXT SCH ×3 (09:00→21:35)
[2016-11-13] MEDS: AMIODARONE 200 MG TAB PO SCH (09:10)
[2016-11-13] MEDS: TAMSULOSIN HCL 0.4 MG CAP PO SCH (09:10)
[2016-11-13] MEDS: METOPROLOL SUCC 50MG EXT REL TAB PO SCH (09:10)
[2016-11-13] MEDS: ASCORBIC ACID 500 MG TAB PO SCH (09:10)
[2016-11-13] MEDS: ESCITALOPRAM OXALATE 10 MG TAB PO SCH (09:10)
[2016-11-13] MEDS: LOSARTAN POTASSIUM 50 MG TAB PO SCH (09:11)
[2016-11-13] MEDS: FINASTERIDE 5 MG TAB PO SCH (09:11)
[2016-11-13] MEDS: OXYBUTYNIN CHLORIDE 5 MG TABCR PO SCH (09:11)
--- NOTE | 2016-11-13 14:11 | Hospitalist Progress Note ---
Hospitalist Progress Note Date of Service Nov 13, 2016. Subjective Pt evaluation today including: conversation w/ patient Patient had no acute issues overnight States that he feels well Constitutional: No fever, No see HPI Eyes: No worsening of vision ENT: No hearing loss Respiratory: No cough Cardiovascular: No chest pain Abdomen: No diarrhea, No pain, No vomiting Musculoskeletal: No joint pain Male : No dysuria Neurologic: No memory loss Endo: No fatigue Skin: No itch, No rash Objective Vital Signs Date Time Temp Pulse Resp B/P Pulse Ox O2 Delivery O2 Flow Rate FiO2 11/13/16 08:06 36.5 53 16 174/71 95 4.0 11/13/16 07:30 Nasal Cannula 4.0 Humidified Oxygen 11/13/16 01:04 36.8 57 18 156/69 94 4.0 11/13/16 00:20 Nasal Cannula 4.0 Humidified Oxygen 11/13/16 00:05 36.8 62 16 152/72 99 4.0 11/12/16 23:34 37.0 58 17 161/70 97 4.0 11/12/16 23:05 37.2 56 16 170/69 99 4.0 11/12/16 22:50 Nasal Cannula 4.0 11/12/16 22:50 Nasal Cannula 4.0 Humidified Oxygen 11/12/16 22:49 36.9 58 16 141/69 98 4.0 11/12/16 22:33 36.9 58 20 158/71 93 4.0 11/12/16 21:08 36.9 60 18 158/71 94 Nasal Cannula 4.0 Humidified Oxygen 11/12/16 20:35 67 20 155/72 95 11/12/16 18:30 58 18 147/61 94 Nasal Cannula 4.0 11/12/16 16:59 59 11/12/16 16:55 97 Nasal Cannula 4.0 11/12/16 16:55 36.9 62 19 155/65 97 Nasal Cannula 4.0 11/12/16 16:55 97 Nasal Cannula 4.0 11/12/16 16:55 97 Nasal Cannula Physical Exam General Appearance: WD/WN, no apparent distress Eyes: normal inspection ENT: normal ENT inspection Neck: supple Respiratory/Chest: chest non-tender, + crackles Cardiovascular: regular rate, rhythm Abdomen: normal bowel sounds, non tender, soft Laboratory Results Last 24 Hours Test 11/12/16 17:33 11/12/16 21:00 11/13/16 05:39 11/13/16 06:52 White Blood Count 6.04 K/uL 5.46 K/uL Red Blood Count 3.22 M/uL 3.23 M/uL Hemoglobin 7.9 g/dL 8.3 g/dL Hematocrit 26.5 % 26.7 % Mean Corpuscular Volume 82.3 fL 82.7 fL Mean Corpuscular Hemoglobin 24.5 pg 25.7 pg Mean Corpuscular Hemoglobin Concent 29.8 g/dl 31.1 g/dl Platelet Count 258 K/uL 234 K/uL Mean Platelet Volume 8.1 fL 8.2 fL Neutrophils (%) (Auto) 83.2 % Lymphocytes (%) (Auto) 8.9 % Monocytes (%) (Auto) 6.6 % Eosinophils (%) (Auto) 0.8 % Basophils (%) (Auto) 0.2 % Neutrophils # (Auto) 5.02 K/uL Lymphocytes # (Auto) 0.54 K/uL Monocytes # (Auto) 0.40 K/uL Eosinophils # (Auto) 0.05 K/uL Basophils # (Auto) 0.01 K/uL RDW Standard Deviation 58.9 fL 55.9 fL RDW Coefficient of Variation 19.5 % 18.8 % Immature Granulocyte % (Auto) 0.3 % Immature Granulocyte # (Auto) 0.02 K/uL Hypochromasia PRESENT Anisocytosis PRESENT Prothrombin Time 30.7 SECONDS 33.8 SECONDS Prothromb Time International Ratio 2.8 3.0 Activated Partial Thromboplast Time 44.7 SECONDS Partial Thromboplastin Ratio 1.7 Sodium Level 145 mmol/L Potassium Level 3.7 mmol/L Chloride Level 107 mmol/L Carbon Dioxide Level 35 mmol/L Anion Gap 3.0 mmol/L Blood Urea Nitrogen 19 mg/dl Creatinine 0.49 mg/dl Estimated GFR () 121.3 Estimated GFR (Non- 104.7 BUN/Creatinine Ratio 38.4 Random Glucose 85 mg/dl Calcium Level 8.1 mg/dl Magnesium Level 2.0 mg/dl Total Bilirubin 0.6 mg/dl Direct Bilirubin 0.2 mg/dl Aspartate Amino Transf (AST/SGOT) 19 U/L Alanine Aminotransferase (ALT/SGPT) 40 U/L Alkaline Phosphatase 132 U/L Total Creatine Kinase 16 U/L Creatine Kinase MB 0.5 ng/ml Creatine Kinase MB Ratio 3.1 Troponin I 0.040 ng/ml Total Protein 6.3 gm/dl Albumin 2.2 gm/dl Thyroid Stimulating Hormone (TSH) 0.482 uIu/ml Bedside Glucose 117 mg/dl 107 mg/dl Pro-B-Type Natriuretic Peptide 89794 pg/ml Test 11/13/16 08:02 11/13/16 12:26 Bedside Glucose 98 mg/dl 112 mg/dl Assessment and Plan Patient is a 80 y.o.M PMHx of DM, Dementia, atrial flutter who presented with epistaxis Epistaxis - HBG stable - add afrin prn Volume overload - give 40 mg IV lasix now Chronic Hypoxic Respiratory failure - currently at baseline 3-4L BPH - continue finasteride and flomax Atrial Fluttter - continue BB /amiodarone - continue coumadin - check PT/INR in am Renal Mass - poor surgical candidate. - to follow with urology U/S in 02/2017 CAD - cont ASA, Statin BB Sacral Decubitus ulcer - consult wound care GERD - Protonix PPX- coumadin DNR/DNI
[2016-11-13 14:48] LABS: CALCIUM 8.5 mg/dl (8.5-10.1)
[2016-11-13] MEDS ORDERED: FUROSEMIDE INJ 40 MG in SYRINGE 0 ML IV ONE (15:00)
--- NOTE | 2016-11-13 15:00 | Pharmacy Progress Note ---
Glycemic Control: Progress Nt Date of Service Nov 13, 2016. Scope Glycemic Pharmacist consulted by Dr Sivan Thomas on 11/12/2016 for glycemic control and to write orders per [facility] inpatient glycemic control protocol. Objective Accuchecks BSG (last 24hrs): Test 11/12/16 17:33 11/12/16 21:00 11/13/16 05:39 11/13/16 08:02 Random Glucose 85 mg/dl (70-99) Bedside Glucose 117 mg/dl (70-99) 107 mg/dl (70-99) 98 mg/dl (70-99) Test 11/13/16 12:26 Bedside Glucose 112 mg/dl (70-99) Laboratory Data (last 24hrs) Test 11/12/16 17:33 11/13/16 06:52 Anion Gap 3.0 mmol/L BUN/Creatinine Ratio 38.4 Blood Urea Nitrogen 19 mg/dl Creatinine 0.49 mg/dl Potassium Level 3.7 mmol/L Sodium Level 145 mmol/L White Blood Count 6.04 K/uL 5.46 K/uL Red Blood Count 3.22 M/uL Hemoglobin 7.9 g/dL Hematocrit 26.5 % Mean Corpuscular Volume 82.3 fL Mean Corpuscular Hemoglobin 24.5 pg Mean Corpuscular Hemoglobin Concent 29.8 g/dl Platelet Count 258 K/uL Mean Platelet Volume 8.1 fL Neutrophils (%) (Auto) 83.2 % Lymphocytes (%) (Auto) 8.9 % Monocytes (%) (Auto) 6.6 % Eosinophils (%) (Auto) 0.8 % Basophils (%) (Auto) 0.2 % Neutrophils # (Auto) 5.02 K/uL Lymphocytes # (Auto) 0.54 K/uL Monocytes # (Auto) 0.40 K/uL Eosinophils # (Auto) 0.05 K/uL Basophils # (Auto) 0.01 K/uL Recent Pertinent Medications Outpatient Anti-diabetic Regimen: * Humalog moderate sliding scale * A1c = 5.6 % 08/14/2016 (re-ordered HbA1C) The patient is currently receiving: * Correctional Insulin: Novolog Correction per scale ACHS Goal Range: Low 120 mg/dL - High 160 mg/dL Correction Factor: 35 mg/dL/unit * Oral Agents: none Risk Factors for Insulin Resistance: * Diet: type 2 diabetic diet Assessment & Plan ASSESSMENT: * ADA & AACE recommend a goal blood sugar range 140-180 mg/dl for the majority of critically ill & non-critically ill patients. However, more stringent targets may be selected in individual cases. * Mr Randolph is a 80 y/o M who was admitted yesterday evening for epistaxis. He is a resident of [facility]. He has excellent glycemic control at the facility with an HbA1C of 5.6% in August of 2016. As this was approximately more than 3 months ago, another HbA1C was ordered. * Yesterday evening, patient was placed on Novolog with a correction factor of 35. As the patient's blood sugars have been excellently controlled without the use of any insulin, this regimen will be continued. A more stringent blood sugar range of 120 mg/dL - 160 mg/dL was adopted for him due to his excellent control at home PLAN FOR INPATIENT GLYCEMIC CONTROL: * Continuing correction factor 35 mg/dl/unit * Continuing NO CARBOHYDRATE RATIO * Continuing goal range to Low 120 mg/dL - High 160 mg/dL * Please note that the plan above was derived based on current level of insulin resistance and hospital stress. These recommendations are appropriate for inpatient admission only. Plan of care upon discharge will need to be reassessed to avoid potential outpatient hypo/hyperglycemia. Thank you.
[2016-11-13] MEDS ORDERED: NURSING VERBAL MED ORDER ONE (15:15)
[2016-11-13 15:22] VITALS: BP 158/81; PULSE 61; TEMP 36.8; O2SAT 94
[2016-11-13] MEDS ORDERED: OXYMETAZOLINE HCL 0.05% NA SPR 15 ML BTL PRN (15:45)
[2016-11-13 16:00] VITALS: O2SAT 94
[2016-11-13 18:37] LABS: URINE APPEARANCE CLEAR (CLEAR); URINE BILIRUBIN NEG (NEG); URINE COLOR YELLOW; URINE NITRITE NEG (NEG); URINE PH 7.5 (4.5-7.5); URINE SPECIFIC GRAVITY 1.006 (1.000-1.030); UROBILINOGEN NEG (NEG)
[2016-11-13 18:40] LABS: MANUAL MICROSCOPIC REQUIRED? NO; REVIEW REQ? NO
[2016-11-13] MEDS: WARFARIN SOD 2.5 MG TAB PO SCH (21:35)
[2016-11-13] MEDS: ATORVASTATIN 40 MG TAB PO SCH (21:36)
[2016-11-13 23:05] VITALS: BP 146/72; PULSE 60; TEMP 36.4; O2SAT 96
[2016-11-14 06:46] LABS: HEMATOCRIT 30.7 % (42-52); MEAN CELL VOLUME 82.5 fL (80-100); MEAN CORPUSCULAR HEMOGLOBIN 25.8 pg (25-34); MEAN CORPUSCULAR HGB CONC 31.3 g/dl (32-36); MEAN PLATELET VOLUME 8.5 fL (7.4-10.4); PLATELET COUNT 266 K/uL (130-400); RED BLOOD COUNT 3.72 M/uL (4.7-6.1); WHITE BLOOD COUNT 5.65 K/uL (4.8-10.8)
[2016-11-14 07:02] LABS: INR 3.5 (0.9-1.1); PROTHROMBIN TIME (PATIENT) 39.5 SECONDS (9.0-12.0)
--- NOTE | 2016-11-14 07:03 | Clinical Documentation Query ---
CLINICAL DOCUMENTATION QUERY 80 year old male who presents to the Emergency Room via EMS to be evaluated for lethargy, AMS, and hypoxia In your clinical opinion is this patient being managed for: ( ) Acute on chronic systolic (Preserved EF) CHF treated with IV Lasix ( ) Acute on chronic systolic and diastolic CHF ( ) Other explanation of clinical findings (Please Explain) ( ) Unable to determine (Please Define) ( ) Need to Discuss ( ) Not Agree The medical record reflects the following clinical findings, treatment, and risk factors. Clinical Indicators: 11/13 progress note states +crackles and noted to "volume overloaded." ProBNAP [id number]. Treatment: IV Lasix, ProBNAP Risk Factors: Age, Aflutter, Please clarify and document your clinical opinion in the progress notes and discharge summary. Terms such as "probable", "suspected", "likely", "questionable", "possible", or "still to be ruled out" are acceptable. IF IN AGREEMENT, YOU MUST DOCUMENT ABOVE DIAGNOSTIC STATEMENT IN DAILY PROGRESS NOTES AND DISCHARGE SUMMARY. This document is not part of the patient's record. Thank You, Trent Lee, RN [phone]
[2016-11-14 07:56] VITALS: BP 151/72; PULSE 69; TEMP 36.6; O2SAT 94
[2016-11-14] MEDS: CHECK FENTANYL PATCH PLACEMENT SCH (08:00)
[2016-11-14] MEDS: INSULIN ASPART 100 UNITS/ML 3 ML PEN SC SCH ×2 (08:00→12:00)
[2016-11-14 08:31] LABS: ESTIMATED AVERAGE GLUCOSE 111 mg/dl; HA1C FLAG Normal (Normal)
[2016-11-14] MEDS: METOPROLOL SUCC 50MG EXT REL TAB PO SCH (09:45)
[2016-11-14] MEDS: NYSTATIN OINT 15 GM TUBE EXT SCH ×2 (09:45→14:02)
[2016-11-14] MEDS: ESCITALOPRAM OXALATE 10 MG TAB PO SCH (09:45)
[2016-11-14] MEDS: OXYBUTYNIN CHLORIDE 5 MG TABCR PO SCH (09:46)
[2016-11-14] MEDS: FINASTERIDE 5 MG TAB PO SCH (09:46)
[2016-11-14] MEDS: TAMSULOSIN HCL 0.4 MG CAP PO SCH (09:46)
[2016-11-14] MEDS: LOSARTAN POTASSIUM 50 MG TAB PO SCH (09:46)
[2016-11-14] MEDS: AMIODARONE 200 MG TAB PO SCH (09:47)
[2016-11-14] MEDS: ASCORBIC ACID 500 MG TAB PO SCH (09:47)
[2016-11-14] MEDS ORDERED: AFRIN (10:22)
--- NOTE | 2016-11-14 10:23 | Discharge Instructions ---
Discharge Instructions Admission Admission Date: Nov 13, 2016 at 14:14 Admission Diagnosis: Epistaxis. Discharge Care Plan - Problem: Medical Problems: (1) Pneumonia (2) Symptomatic anemia Care Plan - Goal(s): Decrease discomfort, Improve function Care Plan - Instructions: Activity Recommendations: no limitations Recommended Home Diet: Type 2 Diabetes Provider Instructions: Please hold Coumadin for 1 day and check INR 4.14.17 Please use humidified oxygen via nasal cannula VTE Core Measure Inpt VTE Proph given/why not?: Warfarin (Coumadin) Laboratory Results Test Results: Hemoglobin A1c Test 11/13/16 06:52 Range/Units Estimated Average Glucose 111 mg/dl Hemoglobin A1c 5.5 4.5-5.6 % Trevon Garcia Recommendations: Call your doctor if: * Temperature above 101 degrees * Pain not relieved by pain medicine ordered * There is increased drainage or redness from any incision * You have any unanswered questions or concerns. Your Doctors Instructions noted above were prepared by provider Sivan Thomas.
[2016-11-14 15:19] VITALS: BP 151/72; PULSE 69; TEMP 36.6; O2SAT 94
--- NOTE | 2016-11-14 16:51 | Discharge Summary ---
Discharge Summary Date of Service Nov 14, 2016. Discharge Summary Admission Date: Nov 13, 2016 at 14:14 Discharge Date: Nov 14, 2016 Discharge Disposition: group home facility Principal Diagnosis: Epistaxis/Volume overload Immunizations: Have You Had Influenza Vaccine: No History of Tetanus Vaccine?: No History of Pneumococcal: Unknown History of Hepatitis B Vaccine: Yes Medication Reconciliation New Medications: Oxymetazoline HCl (Afrin Nasal [place]) 75 Sprays/15 Ml [place] 1 SPRAYS NA BID PRN for NOSEBLEED for 30 Days, SPRAY Continued Medications: Amiodarone Hcl (Cordarone) 200 Mg Tab 200 MG PO DAILY HOLD FOR AP HEART RATE <50 Ascorbic Acid (Ascorbic Acid) 500 Mg Tab 500 MG PO DAILY, TAB Aspirin (Aspirin Ec) 81 Mg Tab 81 MG PO DAILY Atorvastatin (Lipitor) 40 Mg Tab 40 MG PO QPM, TAB Cyanocobalamin (Vitamin B-12) 1,000 Mcg Tab 1000 MCG PO DAILY, TAB Donepezil HCl (Donepezil HCl) 10 Mg Tab 10 MG PO DAILY Escitalopram (Lexapro) 10 Mg Tab 10 MG PO DAILY, TAB Fentanyl (Fentanyl) 12 Mcg Tdsy 12 MCG TD [id number] PRN for Pain CHANGED ON MMHQPM39/09/17 PER MAR Finasteride (Proscar) 5 Mg Tab 5 MG PO DAILY, TAB Folic Acid (Folvite) 1 Mg Tab 1 MG PO 6XWK, 1 Refill EVERYDAY BUT FRIDAYS Guaifenesin La (Guaifenesin Er) 600 Mg Tabcr 600 MG PO Q12H, TAB Hydrocodone/Acetaminophen 5MG/325MG ([place]rie 5MG/325MG) Tab 1 TABLET PO Q8 PRN for Pain Insulin Lispro (Human) (Humalog) 100 Unit/Ml Inj 1 DOSE SQ ACHS for SLIDING SCALE 0-150=0 UNITS 151-200= 6 UNITS 201-250= 8 UNITS 251-300= 10 UNITS 301-350= 12 UNITS 351-400= 14 UNITS 401-450= 16 UNITS >450= NOTIFY Losartan Potassium (Cozaar) 50 Mg Tab 50 MG PO DAILY, 5 Refills Magnesium (Magnesium 250 mg) 1 Tab Tab 250 MG PO DAILY Methotrexate (Trexall) 15 Mg Tab 15 MG PO FRIDAYS TAKE ONCE A DAY ON FRIDAYS Metoprolol Succinate (Metoprolol Succinate ER) 50 Mg Tabcr 50 MG PO DAILY Mupirocin (Bactroban 2% Oint) 66 Appln/22 Gm Oint 1 APPLN TOP DAILY, TUBE LEFT BIG TOE Nitroglycerin (Nitrostat) 0.4 Mg Tab 0.4 MG UT UD PRN for Chest Pain, BTL Nystatin (Topical) (Nystatin) 100,000 Unit/Gm Oin 1 APPLN TOP TID, GM Omeprazole (Prilosec) 40 Mg Cap 40 MG PO DAILY, CAP Oxybutynin Chloride Er (Ditropan Xl) 10 Mg Tab 10 MG PO DAILY Polysaccharide Iron Complex (Ferrex 150) 150 Mg Cap 150 MG PO BID Tamsulosin HCl (Tamsulosin HCl) 0.4 Mg Cap 0.4 MG PO DAILY Warfarin Sod (Jantoven) 2.5 Mg Tab 2.5 MG PO QPM, TAB Discharge Exam Review of Systems: Constitutional: No chills, No fever Eyes: No worsening of vision ENT: No hearing loss Respiratory: No cough Cardiovascular: No chest pain, No orthopnea Abdomen: No diarrhea, No nausea, No pain, No vomiting Genitourinary - Female: No dysuria Genitourinary - Male: No dysuria, No hematuria Neurologic: No memory loss Endocrine: No fatigue Hematologic / Lymphatic: No abnormal bleeding/bruising Integumentary: No itch, No rash Physical Exam: General Appearance: WD/WN, no apparent distress Eyes: normal inspection ENT: normal ENT inspection Neck: supple, no adenopathy Respiratory/Chest: chest non-tender, lungs clear Cardiovascular: regular rate, rhythm, no edema Abdomen / GI: normal bowel sounds, non tender, soft Extremities: normal inspection Neurologic/Psychiatric: unit clerk II-XII nml as tested, no motor/sensory deficits , alert, + disoriented Lymphatic: no adenopathy Hospital Course Admission HPI Patient is a 80 y.o.M PMHx of dementia, atrial flutter, decubitus ulcer, Diabetes who presents with epistaxis. Pt resides at [facility]. Today patient developed profuse nose bleeds. Patients oxygen was removed and he subsequently developed hypoxia. Patient also c/o SOB and was transferred to [facility]. On presentation patient states he feels much better. He is currently on in baseline 4 L O2. Patient denies any fevers, chest pain, current SOB, nausea or vomiting. Patient admitted to the hospitalist service. Epistaxis - HBG stable - added afrin prn Volume overload - give 40 mg IV lasix now Chronic Hypoxic Respiratory failure - maintained at currently at baseline 3-4L BPH - continue finasteride and flomax Atrial Fluttter - continued BB /amiodarone - continued coumadin - INR elevated at time of d/c. Instructed to hold coumadin and have repeat INR on 4.14.17 Renal Mass - poor surgical candidate. - to follow with urology for f/u U/S in 02/2017 CAD - cont ASA, Statin BB Sacral Decubitus ulcer - consulted wound care GERD - Protonix PPX- coumadin DNR/DNI Total Time Spent: Greater than 30 minutes This includes examination of the patient, discharge planning, medication reconciliation, and communication with other providers. Discharge Instructions Please refer to the electronic Patient Visit Report (Discharge Instructions) for additional information.
== END 2016-11-14 16:00 | DRG 151 ==
LOC: ENRESERVDT → ENRESERVTM → EDBD 16:43 → C.EDB 16:47 → C.MSW 19:35 → OBSVTOIN 11-13 14:14
PROVIDERS: ADMIT Internal Medicine; ATTEND Internal Medicine
DX: R04.0 Epistaxis (principal); J96.11 Chronic respiratory failure with hypoxia; I48.92 Unspecified atrial flutter; F03.90 Unspecified dementia, unspecified severity, without behavioral disturbance, psychotic disturbance, mood disturbance, and anxiety; N40.0 Benign prostatic hyperplasia without lower urinary tract symptoms; K21.9 Gastro-esophageal reflux disease without esophagitis; M06.9 Rheumatoid arthritis, unspecified; L89.159 Pressure ulcer of sacral region, unspecified stage; E11.9 Type 2 diabetes mellitus without complications; I10 Essential (primary) hypertension; N28.89 Other specified disorders of kidney and ureter; D64.9 Anemia, unspecified; I25.10 Atherosclerotic heart disease of native coronary artery without angina pectoris; I25.5 Ischemic cardiomyopathy; Z66 Do not resuscitate; Z79.82 Long term (current) use of aspirin; Z79.01 Long term (current) use of anticoagulants; Z79.84 Long term (current) use of oral hypoglycemic drugs; Z79.899 Other long term (current) drug therapy; Z79.891 Long term (current) use of opiate analgesic; Z86.73 Personal history of transient ischemic attack (TIA), and cerebral infarction without residual deficits; E11.42 Type 2 diabetes mellitus with diabetic polyneuropathy; D63.8 Anemia in other chronic diseases classified elsewhere

== ENCOUNTER → 2016-11-12 | Outpatient (CLI) | payer OTHER, MEDICARE ==
[2016-11-12 08:43] LABS: HEMATOCRIT 25.6 % (42-52); MEAN CELL VOLUME 82.8 fL (80-100); MEAN CORPUSCULAR HEMOGLOBIN 24.3 pg (25-34); MEAN CORPUSCULAR HGB CONC 29.3 g/dl (32-36); MEAN PLATELET VOLUME 8.9 fL (7.4-10.4); PLATELET COUNT 271 K/uL (130-400); RED BLOOD COUNT 3.09 M/uL (4.7-6.1); WHITE BLOOD COUNT 4.95 K/uL (4.8-10.8)
[2016-11-12 08:54] LABS: INR 2.6 (0.9-1.1); PROTHROMBIN TIME (PATIENT) 28.8 SECONDS (9.0-12.0)
== END ==
LOC: C.LABUPNIT 08:21
PROVIDERS: ATTEND Family Medicine
DX: E11.42 Type 2 diabetes mellitus with diabetic polyneuropathy (principal); D63.8 Anemia in other chronic diseases classified elsewhere

== ENCOUNTER → 2016-11-15 | Outpatient (CLI) | payer OTHER, MEDICARE ==
[~2016-11-15] MED LIST changes: -ACET-1311 PO; -ACET650S10 RE; +AFRIN; +ASCO500T16 PO; +BCTROWC TOP; +DRGTP12 TD; +INSU100I SQ; -IPRASOL4 INH; -NVLG SQ; +NYST80OI TOP; +WARF2.5T8 PO; -WARF3TAB PO
[2016-11-15 10:07] LABS: PROTHROMBIN TIME (PATIENT) 46.1 SECONDS (9.0-12.0)
[2016-11-15 10:23] LABS: INR 4.1 (0.9-1.1)
== END ==
LOC: C.LABUPNIT 09:10
PROVIDERS: ATTEND Family Medicine
DX: D63.8 Anemia in other chronic diseases classified elsewhere (principal)

== ENCOUNTER → 2016-11-16 | Outpatient (CLI) | payer OTHER, MEDICARE ==
[2016-11-16 09:47] LABS: PROTHROMBIN TIME (PATIENT) 58.4 SECONDS (9.0-12.0)
[2016-11-16 09:51] LABS: INR 5.1 (0.9-1.1)
== END | disposition home or self-care (01) ==
LOC: C.LABUPNIT 10:41
PROVIDERS: ATTEND Family Medicine
DX: D63.8 Anemia in other chronic diseases classified elsewhere (principal)

== ENCOUNTER → 2016-11-19 | Outpatient (CLI) | payer OTHER, MEDICARE ==
[2016-11-19 10:03] LABS: BASO % 0.3 %; BASO ABS # 0.02 K/uL (0-0.2); EOS % 0.4 %; HEMATOCRIT 27.4 % (42-52); IG% 0.3 %; LYMPH % 8.2 %; LYMPH ABS # 0.62 K/uL (1.2-3.4); MEAN CELL VOLUME 82.8 fL (80-100); MEAN CORPUSCULAR HEMOGLOBIN 25.1 pg (25-34); MEAN CORPUSCULAR HGB CONC 30.3 g/dl (32-36); MEAN PLATELET VOLUME 8.9 fL (7.4-10.4); MONO % 10.9 %; NEUT % 79.9 %; PLATELET COUNT 280 K/uL (130-400); RED BLOOD COUNT 3.31 M/uL (4.7-6.1)
[2016-11-19 10:14] LABS: PROTHROMBIN TIME (PATIENT) 52.4 SECONDS (9.0-12.0)
[2016-11-19 10:15] LABS: INR 4.6 (0.9-1.1)
[2016-11-19 10:22] LABS: ANISOCYTOSIS PRESENT; COMPLETE YES; POIKILOCYTOSIS PRESENT
[2016-11-19 10:45] LABS: BLOOD UREA NITROGEN 23 mg/dl (7-18); BUN/CREATININE RATIO 38.9 (10-20); CALCIUM 8.2 mg/dl (8.5-10.1); CARBON DIOXIDE 33 mmol/L (21-32); CHLORIDE 104 mmol/L (98-107); CREATININE 0.58 mg/dl (0.60-1.40); GLUCOSE 89 mg/dl (70-99); POTASSIUM 3.3 mmol/L (3.5-5.1); SODIUM 144 mmol/L (136-145)
== END | disposition home or self-care (01) ==
LOC: C.LABUPNIT 09:42
PROVIDERS: ATTEND Family Medicine
DX: L10.9 Pemphigus, unspecified (principal); I48.2 Chronic atrial fibrillation

== ENCOUNTER → 2016-11-21 | Outpatient (CLI) | payer OTHER, MEDICARE ==
[2016-11-21 09:01] LABS: PROTHROMBIN TIME (PATIENT) 47.8 SECONDS (9.0-12.0)
[2016-11-21 09:02] LABS: INR 4.2 (0.9-1.1)
--- NOTE | 2016-11-22 14:54 | CODING QUERY NO DIAGNOSIS ---
TREATMENT RENDERED WITHOUT A DIAGNOSIS 37 To promote full compliance with coding requirements relating to patient care, physician participation is requested in all cases of photoengraving proofer uncertainty. Please assist us with providing a diagnosis/symptom for the test(s) below: A diagnosis/symptom was not documented on your Order. A valid diagnosis/symptom is required to bill all insurances. Please remember that we are unable to code a diagnosis of rule out, probable, possible, questionable, or suspected. DOS 11/21/16 Tests that require a diagnosis: * PT/INR DIAGNOSIS: *ON YOUR ORDER YOU HAVE DX CODE D63, THIS IS AN INVALID CODE, CAN YOU PLEASE ADD CORRECT DX CODE WE RECEIVED THE LETTER BACK WITH NO DX ADDED, PLEASE ADD DX Provider Signature: Date: Thank you Cornelia [facility] Information Management Once completed, please kindly fax back to [phone] For questions please call [phone]
== END ==
LOC: C.LABUPNIT 08:09
PROVIDERS: ATTEND Family Medicine
DX: I48.92 Unspecified atrial flutter (principal)

== ENCOUNTER → 2016-11-26 | Outpatient (CLI) | payer OTHER, MEDICARE ==
[2016-11-26 10:21] LABS: HEMATOCRIT 27.6 % (42-52)
--- NOTE | 2016-11-27 14:15 | CODING QUERY NO DIAGNOSIS ---
TREATMENT RENDERED WITHOUT A DIAGNOSIS 37 To promote full compliance with coding requirements relating to patient care, physician participation is requested in all cases of can bander operator uncertainty. Please assist us with providing a diagnosis/symptom for the test(s) below: A diagnosis/symptom was not documented on your Order. A valid diagnosis/symptom is required to bill all insurances. Please remember that we are unable to code a diagnosis of rule out, probable, possible, questionable, or suspected. DOS 11/26/16 Tests that require a diagnosis: * H&H DIAGNOSIS: *ON YOUR ORDER YOU HAVE DX CODE D63, THIS IS AN INVALID CODE, CAN YOU PLEASE ADD THE CORRECT DX CODE Provider Signature: Date: Thank you Cornelia [facility] Information Management Once completed, please kindly fax back to [phone] For questions please call [phone]
== END ==
LOC: C.LABUPNIT 09:59
PROVIDERS: ATTEND Family Medicine
DX: R04.0 Epistaxis (principal)

== ENCOUNTER → 2016-12-03 | Outpatient (CLI) | payer OTHER, MEDICARE ==
[2016-12-03 10:17] LABS: HEMATOCRIT 28.3 % (42-52)
[2016-12-03 10:26] LABS: INR 1.3 (0.9-1.1)
== END ==
LOC: C.LABUPNIT 09:30
PROVIDERS: ATTEND Family Medicine
DX: R04.0 Epistaxis (principal); I48.92 Unspecified atrial flutter

== ENCOUNTER → 2016-12-06 | Outpatient (CLI) | payer OTHER, MEDICARE ==
[2016-12-06 09:51] LABS: BASO % 0.6 %; BASO ABS # 0.04 K/uL (0-0.2); HEMATOCRIT 27.4 % (42-52); IG% 0.5 %; LYMPH % 10.1 %; LYMPH ABS # 0.66 K/uL (1.2-3.4); MEAN CORPUSCULAR HEMOGLOBIN 24.5 pg (25-34); MEAN CORPUSCULAR HGB CONC 29.2 g/dl (32-36); MEAN PLATELET VOLUME 8.3 fL (7.4-10.4); MONO % 9.5 %; NEUT % 72.3 %; PLATELET COUNT 264 K/uL (130-400); RED BLOOD COUNT 3.26 M/uL (4.7-6.1); WHITE BLOOD COUNT 6.54 K/uL (4.8-10.8)
[2016-12-06 10:02] LABS: INR 1.6 (0.9-1.1); PROTHROMBIN TIME (PATIENT) 17.3 SECONDS (9.0-12.0)
[2016-12-06 10:20] LABS: ANISOCYTOSIS PRESENT; COMPLETE YES; ECHINOCYTES 1+; POIKILOCYTOSIS PRESENT
== END ==
LOC: C.LABUPNIT 08:56
PROVIDERS: ATTEND Nurse Practitioner Family
DX: D63.8 Anemia in other chronic diseases classified elsewhere (principal)

== ENCOUNTER → 2016-12-09 | Outpatient (CLI) | payer OTHER, MEDICARE ==
[2016-12-09 09:02] LABS: INR 1.5 (0.9-1.1); PROTHROMBIN TIME (PATIENT) 16.5 SECONDS (9.0-12.0)
== END ==
LOC: C.LABUPNIT 08:35
PROVIDERS: ATTEND Nurse Practitioner Family
DX: I48.91 Unspecified atrial fibrillation (principal)

== ENCOUNTER → 2016-12-16 | Outpatient (CLI) | payer OTHER, MEDICARE ==
[2016-12-16 09:16] LABS: HEMATOCRIT 25.8 % (42-52)
[2016-12-16 09:23] LABS: INR 2.4 (0.9-1.1); PROTHROMBIN TIME (PATIENT) 26.2 SECONDS (9.0-12.0)
--- NOTE | 2016-12-17 14:49 | CODING QUERY NO DIAGNOSIS ---
TREATMENT RENDERED WITHOUT A DIAGNOSIS 37 To promote full compliance with coding requirements relating to patient care, physician participation is requested in all cases of manager social services uncertainty. Please assist us with providing a diagnosis/symptom for the test(s) below: A diagnosis/symptom was not documented on your Order. A valid diagnosis/symptom is required to bill all insurances. Please remember that we are unable to code a diagnosis of rule out, probable, possible, questionable, or suspected. DOS 12/16/16 Tests that require a diagnosis: * HEMOGLOBIN & HEMATICRIT DIAGNOSIS: * PT/INR DIAGNOSIS: *ON YOUR ORDER YOU HAVE DX CODE D63 & I48.9, THESE ARE INVALID CODES, CAN YOU PLEASE ADD THE CORRECT CODES Provider Signature: Date: Thank you Cornelia Somers [employer] Information Management Once completed, please kindly fax back to [phone] For questions please call [phone]
== END ==
LOC: C.LABUPNIT 09:00
PROVIDERS: ATTEND Family Medicine
DX: D64.9 Anemia, unspecified (principal); I48.92 Unspecified atrial flutter

== ENCOUNTER → 2016-12-20 | Outpatient (CLI) | payer OTHER, MEDICARE ==
[2016-12-20 09:47] LABS: INR 3.5 (0.9-1.1); PROTHROMBIN TIME (PATIENT) 39.2 SECONDS (9.0-12.0)
--- NOTE | 2016-12-21 22:35 | CODING QUERY NO DIAGNOSIS ---
TREATMENT RENDERED WITHOUT A DIAGNOSIS 37 To promote full compliance with coding requirements relating to patient care, physician participation is requested in all cases of jack setter uncertainty. Please assist us with providing a diagnosis/symptom for the test(s) below: A diagnosis/symptom was not documented on your Order. A valid diagnosis/symptom is required to bill all insurances. Please remember that we are unable to code a diagnosis of rule out, probable, possible, questionable, or suspected. DOS 12/20/16 Tests that require a diagnosis: * HEMOGLOBIN & HEMATOCRIT DIAGNOSIS: * PT/INR DIAGNOSIS: *ON YOUR ORDER YOU HAVE DX CODE D63, THIS IS AN INVALID CODE, PLEASE ADD CORRECT DX CODE Provider Signature: Date: Thank you Cornelia Somers [facility] Information Management Once completed, please kindly fax back to [phone] For questions please call [phone]
== END ==
LOC: C.LABUPNIT 09:19
PROVIDERS: ATTEND Family Medicine
DX: R04.0 Epistaxis (principal); I48.92 Unspecified atrial flutter

== ENCOUNTER → 2016-12-23 | Outpatient (CLI) | payer OTHER, MEDICARE ==
[2016-12-23 10:59] LABS: HEMATOCRIT 28.3 % (42-52)
[2016-12-23 11:09] LABS: INR 2.8 (0.9-1.1); PROTHROMBIN TIME (PATIENT) 30.8 SECONDS (9.0-12.0)
--- NOTE | 2016-12-25 10:36 | CODING QUERY NO DIAGNOSIS ---
TREATMENT RENDERED WITHOUT A DIAGNOSIS 37 To promote full compliance with coding requirements relating to patient care, physician participation is requested in all cases of real estate appraiser uncertainty. Please assist us with providing a diagnosis/symptom for the test(s) below: A diagnosis/symptom was not documented on your Order. A valid diagnosis/symptom is required to bill all insurances. Please remember that we are unable to code a diagnosis of rule out, probable, possible, questionable, or suspected. DOS 12/23/16 Tests that require a diagnosis: * H&H DIAGNOSIS: * PT/INR DIAGNOSIS: *ON YOUR ORDER YOU HAVE DX CODE D63, THIS IS AN INVALID CODE, CAN YOU PLEASE ADD CORRECT DX CODE Provider Signature: Date: Thank you Cornelia Somers [facility] Information Management Once completed, please kindly fax back to [phone] For questions please call [phone]
== END ==
LOC: C.LABUPNIT 09:51
PROVIDERS: ATTEND Family Medicine
DX: D64.9 Anemia, unspecified (principal); I48.92 Unspecified atrial flutter

== ENCOUNTER → 2016-12-25 | Outpatient (CLI) | payer OTHER, MEDICARE ==
[2016-12-25 10:06] LABS: URINE APPEARANCE TURBID (CLEAR); URINE BILIRUBIN NEG (NEG); URINE COLOR YELLOW; URINE NITRITE NEG (NEG); URINE SPECIFIC GRAVITY 1.019 (1.000-1.030); UROBILINOGEN NEG (NEG); ZZUR CULT IF INDIC CLEAN CATCH YES
[2016-12-25 10:15] LABS: MANUAL MICROSCOPIC REQUIRED? NO; REVIEW REQ? NO; SULFASALICYLIC ACID POS (NEG)
== END ==
LOC: C.LABUPNIT 09:06
PROVIDERS: ATTEND Family Medicine
DX: N39.0 Urinary tract infection, site not specified (principal)

== ENCOUNTER → 2016-12-27 | Outpatient (CLI) | payer OTHER, MEDICARE ==
[2016-12-27 09:19] LABS: INR 2.4 (0.9-1.1); PROTHROMBIN TIME (PATIENT) 26.6 SECONDS (9.0-12.0)
== END ==
LOC: C.LABUPNIT 08:00
PROVIDERS: ATTEND Family Medicine
DX: I25.10 Atherosclerotic heart disease of native coronary artery without angina pectoris (principal)

== ENCOUNTER → 2016-12-31 | Outpatient (CLI) | payer OTHER, MEDICARE ==
[2016-12-31 10:46] LABS: HEMATOCRIT 26.8 % (42-52); MEAN CELL VOLUME 83.5 fL (80-100); MEAN CORPUSCULAR HEMOGLOBIN 24.6 pg (25-34); MEAN CORPUSCULAR HGB CONC 29.5 g/dl (32-36); MEAN PLATELET VOLUME 8.3 fL (7.4-10.4); PLATELET COUNT 259 K/uL (130-400); RED BLOOD COUNT 3.21 M/uL (4.7-6.1); WHITE BLOOD COUNT 5.91 K/uL (4.8-10.8)
== END ==
LOC: C.LABUPNIT 10:29
PROVIDERS: ATTEND Family Medicine
DX: I25.10 Atherosclerotic heart disease of native coronary artery without angina pectoris (principal)